=== PATIENT | male | born 1980 | race African-American/Black ===

== ENCOUNTER 2023-07-23 00:17 | Emergency (ER) | payer SELFPAY ==
[2023-07-23] MEDS ORDERED: dexAMETHasone 10 MG/ML VIAL ONE (01:27)
[2023-07-23] MEDS ORDERED: KETOROLAC 30 MG/ML INJ ONE (01:27)
[2023-07-23] MEDS ORDERED: LIDOCAINE 4% PATCH ONE (01:28)
--- NOTE | 2023-07-23 02:13 | EDPHYS ---
Physician Documentation [facility] Name: Ricky Kaur Age: 42 yrs Sex: Male : 1980 Arrival Date: 07/23/2023 Time: 00:17 Bed 9 Private MD: ED Physician Vivek Malave HPI: 07/23 01:10 This 42 yrs old Black Male presents to ER via Ambulatory with complaints of Leg Pain, cp Left side leg pain and lower back pain. 01:10 The patient presents with pain, that is acute. The complaints affect the lateral aspect cp of left thigh and left calf. Context: resulted from an unknown cause, the patient can fully bear weight, the patient is able to ambulate, with mild difficulty. Associated signs and symptoms: Pertinent positives: left lower back pain, Pertinent negatives fever, swelling, saddle anesthesia, weakness, bowel and/or bladder incontinence. Historical: - Allergies: 00:43 No Known Allergies; jb4 - PMHx: 00:43 None; jb4 - PSHx: 00:43 None; jb4 - Immunization history:: Adult Immunizations up to date. - Social history:: Smoking status: Patient denies any tobacco usage or history of. Patient/guardian denies using alcohol, street drugs. ROS: 01:15 Constitutional: Negative for body aches, chills, fever, poor PO intake, cp 01:15 Eyes: Negative for injury, pain, redness, and discharge, cp 01:15 Cardiovascular: Negative for chest pain, palpitations, 01:15 Respiratory: Negative for cough, shortness of breath, wheezing, 01:15 Abdomen/GI: Negative for abdominal pain, nausea, vomiting, and diarrhea, Exam: 01:20 Constitutional: The patient appears in no acute distress, alert, awake, non-toxic, well cp developed, well nourished, uncomfortable, 01:20 Head/Face: Normocephalic, atraumatic. cp 01:20 Eyes: Periorbital structures: appear normal, Conjunctiva: normal, no exudate, no injection, Sclera: no appreciated abnormality, Lids and lashes: appear normal, bilaterally, 01:20 ENT: External ear(s): are unremarkable, Nose: is normal, Mouth: Lips: moist, Oral mucosa: moist, Posterior pharynx: is normal, airway is patent, no erythema, no exudate, 01:20 Chest/axilla: Inspection: normal, 01:20 Cardiovascular: Rate: normal, Rhythm: regular, Edema: is not appreciated, JVD: is not appreciated, 01:20 Respiratory: the patient does not display signs of respiratory distress, Respirations: normal, no use of accessory muscles, no retractions, labored breathing, is not present, Breath sounds: are clear throughout, no decreased breath sounds, no stridor, no wheezing, 01:20 Abdomen/GI: Inspection: abdomen appears normal, Palpation: abdomen is soft and non-tender, in all quadrants, 01:20 Back: pain, that is mild, of the left low back and left mid back, ROM is painful, with rotation to the right, with rotation to the left, vertebral tenderness, is not appreciated, 01:20 Musculoskeletal/extremity: Extremities: grossly normal except: noted in the left leg: pain, There is no evidence of decreased ROM, deformity, swelling, tenderness, DVT Exam: No signs of deep vein thrombosis. 01:20 Neuro: Orientation: is normal, Mentation: is normal, Motor: moves all fours, strength is normal, Sensation: no obvious gross deficits, Vital Signs: 00:41 BP 143 / 98; Pulse 87; Resp 16; Temp 97.3(TE); Pulse Ox 97% on R/A; Weight 131.54 kg jb4 (R); Height 5 ft. 10 in. ; Pain 10/10; 00:41 Body Mass Index 41.61 (131.54 kg, 177.8 cm) jb4 00:41 Pain Scale: Adult jb4 MDM: 00:53 Patient medically screened. cp 01:20 Data reviewed: vital signs, nurses notes, and as a result, I will discharge patient. cp 02:12 Differential diagnosis: radiculopathy, sciatica, bulging disc. cp 02:13 I considered the following discharge prescriptions or medication management in the emergency department Medications were administered in the Emergency Department. See MAR. 02:13 Counseling: I had a detailed discussion with the patient and/or guardian regarding the cp historical points, exam findings, and any diagnostic results supporting the discharge/admit diagnosis, to return to the emergency department if symptoms worsen or persist or if there are any questions or concerns that arise at home. Response to treatment: the patient's symptoms have markedly improved after treatment, and as a result, I will discharge patient. Administered Medications: 01:21 Drug: Ketorolac IM 60 mg IM once Route: IM; Site: left gluteus; jb4 01:21 Drug: Dexamethasone IM 10 mg IM once Route: IM; Site: right gluteus; jb4 01:22 Drug: Lidoderm Topical Patch 5 % (700 mg/patch) 1 patches Topical once; leave on for 12 jb4 hours; cover most painful area; may cut into smaller pieces Route: Topical; Site: affected area; Disposition: 20:11 Co-signature as Attending Physician, Vivek Malave MD I agree with the assessment sp4 and plan of care. I reviewed the patient's care provided by the Advanced Practice Provider and agree with the diagnosis and treatment plan. Disposition Summary: 07/23/23 02:13 Discharge Ordered Notes: Location: Home cp Problem: new cp Symptoms: have improved cp Condition: Stable cp Diagnosis - Lumbago with sciatica, left side cp Followup: cp - With: Private Physician - When: 2 - 3 days - Reason: Worsening of condition Discharge Instructions: - Discharge Summary Sheet cp - Sciatica cp - Back Exercises cp - Form - Excuse from Work, School, or Physical Activity cp Forms: - Medication Reconciliation Form cp - Thank You Letter cp - Antibiotic Education cp - Prescription Opioid Use cp - Patient Portal Instructions cp - Leadership Thank You Letter cp Prescriptions: - Cyclobenzaprine 10 mg Oral Tablet - take 1 tablet ORAL route every 8 hours As needed; 30 tablet; Refills: 0, cp Product Selection Permitted - Diclofenac Sodium 75 mg Oral Tablet Sustained Release - take 1 tablet ORAL route 2 times per day; 30 tablet; Refills: 0, Product cp Selection Permitted - Medrol (Maninder) 4 mg Oral Tablets, Dose Pack - take 1 tablet ORAL route as directed - follow package instructions; 1 packet; cp Refills: 0, Product Selection Permitted Signatures: Jordan Snyder PA PA cp Bryson, James, RN RN jb4 Vivek Malave MD MD sp4
--- NOTE | 2023-07-23 02:13 | ER ---
Nurse's Notes [facility] Name: Ricky [place] Age: 42 yrs Sex: Male : 1980 Arrival Date: 07/23/2023 Time: 00:17 Bed 9 Private MD: Diagnosis: Lumbago with sciatica, left side Presentation: 07/23 00:41 Chief complaint: Patient states: I am having left leg pain that started Saturday morning. jb4 I think it is my sciatic nerve. I went to work and tried to tough it out. Tonight the pain is much worse. Coronavirus screen: At this time, the client does not indicate any symptoms associated with coronavirus-19. Ebola Screen: No symptoms or risks identified at this time. Initial Sepsis Screen: Does the patient meet any 2 criteria? No. Patient's initial sepsis screen is negative. Does the patient have a suspected source of infection? No. Patient's initial sepsis screen is negative. Risk Assessment: Do you want to hurt yourself or someone else? Patient reports no desire to harm self or others. Onset of symptoms was July 23, 2023. Transition of care: patient was not received from another setting of care. 00:41 Method Of Arrival: Ambulatory jb4 00:41 Acuity: JERRY 4 jb4 Triage Assessment: 00:43 General: Appears in no apparent distress. uncomfortable, Behavior is calm, cooperative, jb4 appropriate for age. Pain: Complains of pain in left leg Pain does not radiate. Pain currently is 10 out of 10 on a pain scale. Quality of pain is described as shooting, tingling, throbbing, Pain began 1 day ago. EENT: No signs and/or symptoms were reported regarding the EENT system. Neuro: Level of Consciousness is awake, alert, obeys commands, Oriented to person, place, time, situation. Cardiovascular: Patient's skin is warm and dry. Respiratory: Airway is patent Respiratory effort is even, unlabored, Respiratory pattern is regular, symmetrical. GI: No signs and/or symptoms were reported involving the gastrointestinal system. : No signs and/or symptoms were reported regarding the genitourinary system. Derm: Skin is intact, Skin is pink, warm \T\ dry. Musculoskeletal: Circulation, motion, and sensation intact. Range of motion: intact in all extremities. Historical: - Allergies: 00:43 No Known Allergies; jb4 - PMHx: 00:43 None; jb4 - PSHx: 00:43 None; jb4 - Immunization history:: Adult Immunizations up to date. - Social history:: Smoking status: Patient denies any tobacco usage or history of. Patient/guardian denies using alcohol, street drugs. Screenin:20 [facility] ED Fall Risk Assessment (Adult) History of falling in the last 3 months, jb4 including since admission No falls in past 3 months (0 pts) Confusion or Disorientation No (0 pts). Abuse screen: Denies threats or abuse. Nutritional screening: No deficits noted. Tuberculosis screening: No symptoms or risk factors identified. Assessment: 02:20 Reassessment: Patient appears in no apparent distress at this time. Patient and/or jb4 family updated on plan of care and expected duration. Pain level reassessed. Patient is alert, oriented x 3, equal unlabored respirations, skin warm/dry/pink. Vital Signs: 00:41 BP 143 / 98; Pulse 87; Resp 16; Temp 97.3(TE); Pulse Ox 97% on R/A; Weight 131.54 kg jb4 (R); Height 5 ft. 10 in. ; Pain 10/10; 00:41 Body Mass Index 41.61 (131.54 kg, 177.8 cm) jb4 00:41 Pain Scale: Adult jb4 ED Course: 00:32 Patient arrived in ED. jj6 00:40 Jordan Snyder PA is PHCP. cp 00:40 Vivek Malave MD is Attending Physician. cp 00:41 Vj Esposito, CATRINA is Primary Nurse. jb4 00:43 Triage completed. jb4 00:43 Arm band placed on right wrist. jb4 02:20 Patient has correct armband on for positive identification. Bed in low position. Call jb4 light in reach. Side rails up X 1. 02:20 No provider procedures requiring assistance completed. Patient did not have IV access jb4 during this emergency room visit. Administered Medications: 01:21 Drug: Ketorolac IM 60 mg IM once Route: IM; Site: left gluteus; jb4 01:21 Drug: Dexamethasone IM 10 mg IM once Route: IM; Site: right gluteus; jb4 01:22 Drug: Lidoderm Topical Patch 5 % (700 mg/patch) 1 patches Topical once; leave on for 12 jb4 hours; cover most painful area; may cut into smaller pieces Route: Topical; Site: affected area; Medication: 02:20 VIS not applicable for this client. jb4 Outcome: 02:13 Discharge ordered by . [email or web address] 02:20 Discharged to home ambulatory, jb4 02:20 Condition: stable 02:20 Discharge instructions given to patient, Instructed on discharge instructions, follow up and referral plans. no drinking with medication, no driving heavy equipment, medication usage, Demonstrated understanding of instructions, follow-up care, medications, Prescriptions given X 3, 02:22 Patient left the ED. jb4 Signatures: Jordan Snyder PA PA cp Bryson, James, CATRINA RN jb4 Adriana Baeza jj6
[2023-07-23 02:29] VITALS: BP 143/98; TEMP 97.3; O2SAT 97
== END 2023-07-23 02:22 | disposition home or self-care (01) ==
LOC: ER 00:17
DX: M54.42 Lumbago with sciatica, left side (principal)
CPT/HCPCS: 96372; 99284; J1100; J2001